=== PATIENT | male | born 1960 | race Caucasian/White ===

== ENCOUNTER 2017-05-14 10:18 | Emergency (ER) | payer OTHER ==
[~2017-05-14] VITALS: Ht 172.7 cm; Wt 79.4 kg
[2017-05-14 10:20] VITALS: BP 116/76
== END 2017-05-14 10:56 | disposition home or self-care (01) ==
LOC: ER 10:20
DX: J11.1 Influenza due to unidentified influenza virus with other respiratory manifestations (principal); E11.9 Type 2 diabetes mellitus without complications
CPT/HCPCS: A4606; Z7610